=== PATIENT | female | born 1960 | race Hispanic/Latino ===

== ENCOUNTER 2017-09-22 05:59 | Observation (INO) | payer MEDICAID ==
[2017-09-21 11:45] VITALS: BP 154/61
[2017-09-21 11:58] LABS: BASOPHILS % (AUTO) 0.7 % (0.0-5.0); HEMATOCRIT 33.7 % (36-48); LYMPHOCYTES % (AUTO) 24.4 % (21.0-51.0); MEAN CORPUSCULAR HEMOGLOBIN 30.4 pg (27.0-33.0); MEAN CORPUSCULAR HGB CONC 32.8 g/dL (32.0-36.0); MEAN CORPUSCULAR VOLUME 92.8 fL (79-99); MONOCYTES % (AUTO) 5.3 % (3.0-13.0); NEUTROPHILS % (AUTO) 67.6 % (40.0-77.0); PLATELET COUNT (AUTO) 122 K/uL (130-400); RED BLOOD CELL COUNT(AUTO) 3.63 MIL/uL (4.00-5.50); RED CELL DISTRIBUTION WIDTH 15.3 % (11.0-15.5)
[2017-09-21 12:09] LABS: INR 0.98 (0.85-1.15); PARTIAL THROMBOPLASTIN TIME 25.4 SEC (26.3-35.5); PROTHROMBIN TIME 10.3 SEC (9.6-11.6)
[2017-09-21 12:16] LABS: CREATININE 1.5 mg/dL (0.5-1.5); POTASSIUM 4.7 mmol/L (3.5-5.1)
[2017-09-22] VITALS (19 sets, daily range): BP systolic 122–154; BP diastolic 48–70
[~2017-09-22] VITALS: Ht 160 cm; Wt 128.3 kg
[~2017-09-22 05:59] MED LIST: ALLO300T2 PO; ATOR40TA71 PO; CLON0.5T4 PO; CLOP75TA14 PO; FOLI1TAB15 PO; FURO40TA5 PO; GABA-531 PO; INS7030 SQ; LEVO137T2 PO; LISI10TA7 PO; METO-408 PO; POTA10TA PO; SODIUM CHLORIDE 0.9% 1000ML 1,000 ML IV SCH
[2017-09-22] MEDS ORDERED: PREDNISOLONE OP (09:39)
[2017-09-22] MEDS ORDERED: MIDAZOLAM HCL 1 MG/ML 2ML VIAL ONE ×3 (09:42→11:41)
[2017-09-22] MEDS ORDERED: CEFAZOLIN 1GM / D5W 50ML 150 ML ONE (09:42)
[2017-09-22] MEDS ORDERED: MEPERIDINE-PF 50 MG/ML SYG ONE (09:42)
[2017-09-22] MEDS ORDERED: LIDOCAINE HCL 1% MDV 50ML VIAL ONE (09:42)
[2017-09-22] MEDS ORDERED: ISOVUE-300 100 ML VIAL IV ONE (09:42)
[2017-09-22] MEDS ORDERED: BUPIVACAINE/PF 0.25% 30ML VIAL IJ ONE (09:42)
[2017-09-22] MEDS ORDERED: FENTANYL CITRATE PF 50 MCG/1 ML 2ML VIAL ONE (09:58)
[2017-09-22] MEDS ORDERED: NITROGLYCERIN 5 MG/ML 10 ML VIAL IV ONE (11:03)
[2017-09-22] MEDS ORDERED: THROMBIN-JMI 5000 UNIT/VIAL TP ONE (11:34)
[2017-09-22] MEDS ORDERED: OCTYL 2-CYANOACRYLATE 1 EACH TP ONE (12:08)
[2017-09-22] MEDS ORDERED: METOPROLOL TARTRATE 1 MG/ML 5ML VIAL IV ONE (12:18)
[2017-09-22] MEDS ORDERED: ACETAMINOPHEN-CODEINE 300/30MG TAB PO PRN ×2 (12:45)
[2017-09-22] MEDS ORDERED: ACETAMINOPHEN 325 MG TAB PO PRN ×2 (12:45)
[2017-09-22] MEDS ORDERED: TEMAZEPAM 30 MG CAP PO PRN (12:45)
[2017-09-22] MEDS ORDERED: ONDANSETRON HCL 4 MG/2 ML VIAL IV PRN (12:45)
[2017-09-22] MEDS ORDERED: ONDANSETRON HCL 4 MG/2 ML VIAL ONE (13:11)
[2017-09-22] MEDS ORDERED: METOCLOPRAMIDE 10 MG/2 ML VIAL ONE (13:13)
[2017-09-22] MEDS ORDERED: METOPROLOL TARTRATE 50 MG TAB PO ONE (16:00)
[2017-09-22] MEDS: GABAPENTIN 300 MG CAPSULE PO SCH ×2 (17:17→21:28)
[2017-09-22] MEDS ORDERED: PREDNISOLONE OP SCH (21:00)
[2017-09-22] MEDS: METOPROLOL TARTRATE 50 MG TAB PO SCH (21:28)
[2017-09-22] MEDS: POTASSIUM CHLORIDE 10 MEQ/TAB.SA PO SCH (21:28)
[2017-09-22] MEDS: INSULIN HUMULIN 70/30 100 UNIT/ML 3ML SQ SCH (21:43)
[2017-09-22] MEDS ORDERED: CEFAZOLIN 1GM / D5W 50ML 50 ML IV SCH (22:00)
[2017-09-22] MEDS ORDERED: CEFAZOLIN SODIUM 1 GM VIAL IVP ONE (22:00)
[2017-09-23] VITALS: BP 122/50
[2017-09-23 04:00] VITALS: BP 110/46
[2017-09-23] MEDS ORDERED: LEVOTHYROXINE 25 MCG TABLET PO SCH (06:30)
[2017-09-23] MEDS ORDERED: LEVOTHYROXINE 112 MCG TABLET PO SCH (06:30)
[2017-09-23 08:00] VITALS: BP 114/54
[2017-09-23] MEDS ORDERED: ALLOPURINOL 300 MG TABLET PO SCH (09:00)
[2017-09-23] MEDS ORDERED: CLONAZEPAM 0.5 MG TABLET PO SCH (09:00)
[2017-09-23] MEDS ORDERED: CLOPIDOGREL BISULFATE 75 MG TAB PO SCH (09:00)
[2017-09-23] MEDS ORDERED: LISINOPRIL 10 MG TABLET PO SCH (09:00)
[2017-09-23] MEDS ORDERED: FOLIC ACID 1 MG TABLET PO SCH (09:00)
[2017-09-23] MEDS ORDERED: ATORVASTATIN CALCIUM 40 MG TABLET PO SCH (09:00)
[2017-09-23] MEDS ORDERED: FUROSEMIDE 40 MG TABLET PO SCH (09:00)
[2017-09-23] MEDS: GABAPENTIN 300 MG CAPSULE PO SCH (09:42)
[2017-09-23] MEDS: POTASSIUM CHLORIDE 10 MEQ/TAB.SA PO SCH (09:42)
[2017-09-23] MEDS: METOPROLOL TARTRATE 50 MG TAB PO SCH (09:43)
[2017-09-23] MEDS: INSULIN HUMULIN 70/30 100 UNIT/ML 3ML SQ SCH (09:48)
== END 2017-09-23 13:16 | disposition home or self-care (01) ==
LOC: DAH 05:59 → DAHIP 06:00 → DAH 06:00 → 2AH 14:40
PROVIDERS: ADMIT Internal Medicine Cardiovascular Disease; ATTEND Internal Medicine Cardiovascular Disease
DX: I25.5 Ischemic cardiomyopathy (principal); I35.0 Nonrheumatic aortic (valve) stenosis; I25.10 Atherosclerotic heart disease of native coronary artery without angina pectoris; E78.5 Hyperlipidemia, unspecified; E11.9 Type 2 diabetes mellitus without complications; I25.2 Old myocardial infarction; I11.0 Hypertensive heart disease with heart failure; I50.42 Chronic combined systolic (congestive) and diastolic (congestive) heart failure; Z95.1 Presence of aortocoronary bypass graft; Z95.2 Presence of prosthetic heart valve; Z79.899 Other long term (current) drug therapy
CPT/HCPCS: 33225; 33249; 36415; 71045; 71046; 80048; 82948 ×4; 85025; 85610; 85730; 93005; 96372 ×2; 96374; A4218; C1769 ×3; C1882; C1894; C1895 ×2; C1900; G0378 ×31; J0690 ×2; J1815; J2175; J2250 ×2; J2405; J2765; J3490 ×4; J7030; Q9967; 99152; 99153; J3010